=== PATIENT | female | born 1955 | race African-American/Black ===

== ENCOUNTER 2021-04-10 04:23 | Day surgery (SDC) | payer OTHER ==
[2021-04-04 17:45] VITALS: BMI 35.4
[2021-04-10] MEDS ORDERED: MIDAZOLAM HCL 2 MG/2 ML SINGLE DOSE VIAL ONE (10:55)
[2021-04-10] MEDS ORDERED: PROPOFOL 20 ML ONE (11:04)
[2021-04-10 11:28] VITALS: PULSE 66
[2021-04-10] MEDS ORDERED: ACETAMINOPHEN 325 MG TABLET (FP) PO PRN (11:55)
[2021-04-10] MEDS ORDERED: ONDANSETRON 4 MG/2 ML VIAL IVPUSH PRN (11:55)
[2021-04-10] MEDS ORDERED: LACTATED RINGERS SOLUTION 1,000 ML IV SCH (12:00)
[2021-04-10 12:15] VITALS: BP 145/85; TEMP 97.4
== END 2021-04-10 12:10 | disposition home or self-care (01) ==
LOC: JASU-SURG 04:23
PROVIDERS: ATTEND Urology
PROC: 0TF3XZZ Fragmentation in Right Kidney Pelvis, External Approach (ICD-10-PCS; principal; 2021-04-10 09:30)
DX: N20.0 Calculus of kidney (principal); I10 Essential (primary) hypertension; E11.9 Type 2 diabetes mellitus without complications
CPT/HCPCS: 82962

== ENCOUNTER 2021-05-22 05:28 | Day surgery (SDC) | payer OTHER ==
[2021-05-19 11:57] VITALS: BMI 35.4
[2021-05-22] MEDS ORDERED: MIDAZOLAM HCL 2 MG/2 ML SINGLE DOSE VIAL ONE (18:03)
[2021-05-22] MEDS ORDERED: PROPOFOL 20 ML ONE (18:03)
[2021-05-22 20:08] VITALS: PULSE 64; TEMP 97.8
[2021-05-22 20:17] VITALS: BP 135/78
== END 2021-05-22 20:27 | disposition home or self-care (01) ==
LOC: JASU-SURG 05:28
PROVIDERS: ATTEND Urology
PROC: 0TF3XZZ Fragmentation in Right Kidney Pelvis, External Approach (ICD-10-PCS; principal; 2021-05-22 16:30)
DX: N20.0 Calculus of kidney (principal)
CPT/HCPCS: 82962